=== PATIENT | male | born 1990 | race Caucasian/White ===

== ENCOUNTER 2020-08-23 13:11 | Emergency (ER) | payer OTHER ==
--- NOTE | 2020-08-23 14:07 | EDM.PDOC ---
ED HPI GENERAL MEDICAL PROBLEM - General Chief Complaint: Laceration Stated Complaint: r forefinger cut to muscle Time Seen by Provider: 08/23/20 13:37 - History of Present Illness INITIAL COMMENTS - FREE TEXT/NARRATIVE: HISTORY AND PHYSICAL: History of present illness: Is a 29-year-old gentleman who presents to the ER today secondary to a laceration to his right index finger PIP joint volar aspect that occurred approximately 27 minutes prior to arrival. Patient denies any recent fevers, shakes, chills. Patient denies any other symptomatology. Patient reports that his tendon function and flexion/extension of his index finger has been intact without any loss of sensation. Patient's tetanus status is up-to-date. Review of systems: As per history of present illness and below otherwise all systems reviewed and negative. Past medical history: As per history of present illness and as reviewed below otherwise noncontributory. Surgical history: As per history of present illness and as reviewed below otherwise no ncontributory. Social history: No reported history of drug abuse. Family history: As per history of present illness and as reviewed below otherwise noncontributory. Physical exam: This patient was seen and evaluated during the 2019 SARS-CoV-2 novel coronavirus pandemic period. Community viral transmission is ongoing at time of this encounter and the emergency department is operating under pandemic response procedures. Constitutional: Patient is oriented to person, place, and time. Appears well- developed and well-nourished. No distress. HEENT: Moist mucous membranes Head: Normocephalic and atraumatic Eyes: Right eye exhibits no discharge. Left eye exhibits no discharge. No scleral icterus Neck: Normal range of motion. No tracheal deviation present. Cardiovascular: Normal rate and regular rhythm. Pulmonary: Effort normal, no respiratory distress. Abdominal: No distention Musculoskeletal: Normal range of motion Neurologic: Alert and oriented to person, place and time. Skin: [place], warm and dry. Psychiatric: Normal mood and affect. Behavior is normal. Judgment and thought content normal. Nursing note and vital signs have been reviewed Patient's ER physical exam is significant for a 2 cm laceration that is beak shaped over the PIP joint of his right index finger over the volar aspect. Patient is neurovascularly intact. Full flexion and extension of his index finger at the PIP and DIP joints were tested and were intact. Diagnostics: [] Therapeutics: [] Assessment and plan: 29-year-old with a laceration to his right index finger that was sutured in the ED. Patient will need a wound check in 2 days and suture removal in 10 days. Patient will have a finger splint applied. DME note: Finger splint applied to right index finger secondary to laceration over the PIP joint. This will need to stay in place for 1 week. Splint is being applied to improve healing and prevent dehiscence of the laceration. Definitive disposition and diagnosis as appropriate pending reevaluation and review of above. - Related Data Allergies Allergy/AdvReac Type Severity Reaction Status Date / Time No Known Allergies Allergy Verified 08/23/20 13:47 Home Meds: Home Meds . [No Known Home Meds] 08/23/20 [History] ED ROS GENERAL - Review of Systems Review Of Systems: See Below ED EXAM, SKIN/RASH Exam: See Below ED SKIN PROCEDURES - Laceration/Wound Repair Right Digit - 2nd (Index) Appearance: Subcutaneous, Stellate, Irregular, Clean Distal NVT: Neuro & Vascular Intact, No Tendon Injury Anesthetic Type: Local Local Anesthesia - Lidocaine (Xylocaine): 1% Plain Local Anesthetic Volume: 1cc Skin Prep: Chlorhexidine (Hibiciens), Saline Saline Irrigation (cc's): 1,000 Exploration/Debridement/Repair: Wound Explored, In a Bloodless Field, Explored to Base Closed with: Sutures Lac/Wound length In cm: 2 Suture Size: 4-0 # of Sutures: 3 Suture Type: Nylon Course - Vital Signs Last Recorded V/S: Last Vital Signs Temp 97.4 F 08/23/20 13:30 Pulse 102 H 08/23/20 13:30 Resp 18 08/23/20 13:30 BP 138/89 08/23/20 13:30 Pulse Ox 96 08/23/20 13:30 - Orders/Labs/Meds Meds: Medications Discontinued Medications Generic Name Dose Route Start Last Admin Trade Name Tra PRN Reason Stop Dose Admin Lidocaine HCl Confirm 08/23/20 13:38 Lidocaine 1% 5 Ml Sdv Administered 08/23/20 13:39 Dose 5 ml .ROUTE .STK-MED ONE Lidocaine HCl 5 ml 08/23/20 13:37 Lidocaine 1% 5 Ml Sdv INJECT 08/23/20 13:38 ONETIME ONE Departure - Departure Time of Disposition: 14:06 Disposition: Home, Self-Care 01 Condition: Good Clinical Impression: Laceration of finger Qualifiers: Encounter type: initial encounter Finger: index finger Damage to nail status: without damage Foreign body presence: without foreign body Laterality: right Qualified Code(s): S61.210A - Laceration without foreign body of right index finger without damage to nail, initial encounter - Discharge Information Instructions: Laceration Care, Adult Referrals: Artie Rucker MD [Primary Care Provider] - Additional Instructions: Your seen and evaluated in ER today secondary to laceration to your right index finger. This was sutured with 3 sutures. You will need a wound check in 2 days and suture removal in 10 days by your primary care physician. A splint has been applied to assist with healing and prevent dehiscence of the injury. The following information is given to patients seen in the emergency department who are being discharged to home. This information is to outline your options for follow-up care. We provide all patients seen in our emergency department with a follow-up referral. The need for follow-up, as well as the timing and circumstances, are variable depending upon the specifics of your emergency department visit. If you don't have a primary care physician on staff, we will provide you with a referral. We always advise you to contact your personal physician following an emergency department visit to inform them of the circumstance of the visit and for follow-up with them and/or the need for any referrals to a consulting specialist. The emergency department will also refer you to a specialist when appropriate. This referral assures that you have the opportunity for follow-up care with a specialist. All of these measure are taken in an effort to provide you with optimal care, which includes your follow-up. Under all circumstances we always encourage you to contact your private physician who remains a resource for coordinating your care. When calling for follow-up care, please make the office aware that this follow-up is from your recent emergency room visit. If for any reason you are refused follow-up, please contact the [facility] Emergency Department at and asked to speak to the emergency department charge nurse. [facility] - Primary Care [address] [place] [id number] [facility] [address] [place] [address] Sepsis Event Note (ED) - Evaluation Sepsis Screening Result: No Definite Risk - Focused Exam Vital Signs: Vital Signs Temp Pulse Resp BP Pulse Ox 08/23/20 13:30 97.4 F 102 H 18 138/89 96
[2020-08-23 14:25] VITALS: BP 158/98; PULSE 98
== END 2020-08-23 14:22 | disposition home or self-care (01) ==
LOC: MW.ED 13:11
DX: S61.210A Laceration without foreign body of right index finger without damage to nail, initial encounter (principal); W26.8XXA Contact with other sharp object(s), not elsewhere classified, initial encounter
CPT/HCPCS: 12001; 99282; 99282-25

== ENCOUNTER 2022-08-09 20:41 | Emergency (ER) | payer MEDICAID ==
[2022-08-09] MEDS ORDERED: valACYclovir 500 MG Tab PO STA (21:56)
[2022-08-09 22:28] VITALS: BP 149/88; PULSE 86
== END 2022-08-09 22:27 | disposition home or self-care (01) ==
LOC: MW.ED 20:41
DX: B02.9 Zoster without complications (principal); F41.9 Anxiety disorder, unspecified
CPT/HCPCS: 99283; A9270; 99284

== ENCOUNTER 2022-10-12 22:35 | Emergency (ER) | payer MEDICAID ==
[2022-10-12] MEDS ORDERED: Sodium Chloride 0.9% 1,000 ML IV ONE (22:42)
[2022-10-12 22:57] LABS: BASOPHILS PERCENT AUTO 0.3 % (0.0-1.5); EOSINOPHILS ABSOLUTE AUTO 0.2 K/uL (0.0-0.7); EOSINOPHILS PERCENT AUTO 2.6 % (0.0-7.0); HEMATOCRIT 43.4 % (38.0-50.0); HEMOGLOBIN 14.4 g/dL (13.0-17.0); LYMPHOCYTES ABSOLUTE AUTO 2.8 K/uL (0.6-2.4); LYMPHOCYTES PERCENT AUTO 32.3 % (16.0-40.0); MEAN CORPUSCULAR HEMOGLOBIN 28.5 pg (27.0-32.0); MEAN CORPUSCULAR HGB CONC 33.2 g/dL (31.0-37.0); MEAN CORPUSCULAR VOLUME 85.9 fL (80.0-98.0); MONOCYTES ABSOLUTE AUTO 0.5 K/uL (0.0-0.8); MONOCYTES PERCENT AUTO 6.1 % (0.0-15.0); NEUTROPHILS ABSOLUTE AUTO 5.1 K/uL (1.4-5.7); NEUTROPHILS PERCENT AUTO 58.7 % (48.0-80.0); NRBC ABSOLUTE 0 K/uL; PLATELET COUNT,PLT 231 K/uL (150-400); RED BLOOD CELL COUNT 5.05 M/uL (4.50-5.90); WHITE BLOOD CELL COUNT,WBC 8.73 K/uL (4.0-11.0)
[2022-10-12 23:37] LABS: A/G RATIO 0.6 (0.9-1.6); ALBUMIN 3.1 g/dL (3.4-5.0); BILIRUBIN TOTAL 0.2 mg/dL (0.2-1.0); CALCIUM 8.8 mg/dL (8.5-10.1); CARBON DIOXIDE,CO2 25.2 mmol/L (21.0-32.0); CREATININE 1.1 mg/dL (0.8-1.3); EST CRCL DRUG DOSING (CG) 115.23 mL/min; MAGNESIUM 1.8 mg/dL (1.8-2.4); POTASSIUM,K 3.5 mmol/L (3.5-5.1); PROTEIN TOTAL,TP 8.2 g/dL (6.4-8.2); TSH ULTRASENSITIVE 2.03 uIU/mL (0.36-3.74)
[2022-10-12 23:45] VITALS: BP 163/89
[2022-10-12 23:55] VITALS: PULSE 86
== END 2022-10-12 23:54 | disposition home or self-care (01) ==
LOC: MW.ED 22:35
DX: R42 Dizziness and giddiness (principal); I10 Essential (primary) hypertension; Z79.899 Other long term (current) drug therapy
CPT/HCPCS: 36415; 71045; 80053; 83735; 84443; 84484; 85025; 93005; 96360; 99285; J7030; 93010; 99282

== ENCOUNTER 2023-12-27 21:19 | Emergency (ER) | payer BC ==
[2023-12-27 21:42] VITALS: BP 157/95
[2023-12-27] MEDS: Ondansetron 4 MG Tab.DIS PO ONE (21:47)
[2023-12-27] MEDS: methylPREDNISolone Sodium Succinate 125 MG/2 ML SDV IM ONE (21:47)
[2023-12-27] MEDS: Acetaminophen/HYDROcodone 325-5 MG Tab PO ONE (21:47)
[2023-12-27 22:02] VITALS: PULSE 118
== END 2023-12-27 22:02 | disposition home or self-care (01) ==
LOC: MW.ED 21:19
DX: M54.41 Lumbago with sciatica, right side (principal); Z75.8 Other problems related to medical facilities and other health care
CPT/HCPCS: 96372; 99283; A9270; J2919